=== PATIENT | female | born 1985 | race African-American/Black ===

== ENCOUNTER 2017-11-06 15:11 | Emergency (ER) | payer MEDICAID ==
[~2017-11-06] VITALS: Ht 162.6 cm; Wt 62.0 kg
[2017-11-06] MEDS ORDERED: ONDANSETRON HCL 4MG/2ML VIAL IV STA (23:04)
[2017-11-06] MEDS ORDERED: SODIUM CHLORIDE 0.9% 1,000 ML IV ONE (23:04)
[2017-11-07 00:28] LABS: BASOPHILS % 0.3 % (0.0-2.0); EOSINOPHILS % 3.7 % (0.0-5.0); HEMATOCRIT. 39.8 % (36.0-48.0); HEMOGLOBIN. 13.3 g/dL (12.0-16.0); LYMPHOCYTES % 18.5 % (20.0-50.0); MEAN CORPUSCULAR HEMOGLOBIN 32.1 pg (28.0-32.0); MEAN CORPUSCULAR VOLUME 95.8 fL (81.0-99.0); MONOCYTES % 7.7 % (2.0-8.0); NEUTROPHILS % 69.8 % (40.0-76.0); PLATELET 196 x1000/uL (130-400); RED BLOOD CELL COUNT 4.15 mill/uL (4.2-5.4); RED CELL DISTRIBUTION WIDTH 13.2 % (11.6-14.6)
[2017-11-07 00:31] LABS: CHLORIDE 106 mEq/L (98-107)
[2017-11-07 00:33] LABS: PROTHROMBIN TIME 10.4 sec (9.4-11.6)
[2017-11-07 00:55] LABS: HCG SCREEN POSITIVE
[2017-11-07 01:38] LABS: B-HCG QUANTITATIVE 126488 mIU/mL (<3)
[2017-11-07 02:06] LABS: CLARITY URINE CLEAR (CLEAR); COLOR URINE DARK YELLOW (YELLOW); KETONES URINE 4+ (NEGATIVE); LEUKOCYTE ESTERASE URINE NEGATIVE (NEGATIVE); NITRITE URINE NEGATIVE (NEGATIVE); OCCULT BLOOD URINE NEGATIVE (NEGATIVE); PH URINE 5.5 (4.5-8.0); PROTEIN URINE NEGATIVE (NEGATIVE); SPECIFIC GRAVITY URINE 1.023 (1.005-1.030); UROBILINOGEN URINE 0.2 E.U./dL (0.2-1.0)
[2017-11-07 04:18] VITALS: BP 108/67
== END 2017-11-07 04:20 | disposition home or self-care (01) ==
LOC: ER 15:25
DX: O23.41 Unspecified infection of urinary tract in pregnancy, first trimester (principal); Z3A.10 10 weeks gestation of pregnancy; O26.891 Other specified pregnancy related conditions, first trimester; R03.0 Elevated blood-pressure reading, without diagnosis of hypertension
CPT/HCPCS: 36415; 76801; 76817; 80053; 81003; 84702; 84703; 85025; 85610; 87086; 93005; 96361; 96374; 99285; J7030; Z7610